=== PATIENT | female | born 1995 | race Caucasian/White ===

== ENCOUNTER 2017-02-23 17:44 | Outpatient (CLI) | payer BC | END 2017-02-23 19:35 | disposition home or self-care (01) | LOC: MW.OBCHECK 17:44 → MW.OB 17:48 → MW.OBCHECK 19:35 | PROVIDERS: ATTEND Obstetrics & Gynecology | DX: O47.03 False labor before 37 completed weeks of gestation, third trimester (principal); Z3A.37 37 weeks gestation of pregnancy | CPT/HCPCS: 59025; 80305; 81003; 87081 ==

== ENCOUNTER 2017-03-11 17:05 | Inpatient (IN) | payer SELFPAY ==
[2017-03-11] MEDS ORDERED: Lidocaine 1% 50 ML MDV INJECT PRN (17:36)
[2017-03-11] MEDS ORDERED: Sodium Chloride 0.9% 2.5 ML Syringe FLUSH PRN (17:36)
[2017-03-11] MEDS ORDERED: Carboprost Tromethamine 250 MCG/1 ML Amp IM PRN (17:36)
[2017-03-11] MEDS ORDERED: Methylergonovine 0.2 MG/1 ML Amp IM PRN (17:36)
[2017-03-11] MEDS ORDERED: Nalbuphine 10 MG/1 ML Vial IVPUSH PRN (17:36)
[2017-03-11] MEDS ORDERED: Sodium Chloride 0.9% 10 ML Syringe FLUSH PRN (17:36)
[2017-03-11] MEDS ORDERED: Misoprostol 200 MCG Tab PO PRN (17:36)
[2017-03-11] MEDS ORDERED: Water For Irrigation,Sterile 1,000 ML Container IRR PRN (17:36)
[2017-03-11] MEDS ORDERED: Oxytocin/Lactated Ringers 30 UNIT/500 ML BAG IV SCH (17:45)
--- NOTE | 2017-03-11 18:01 | PCM.LDHP ---
L&D History of Present Illness - General Date of Service: 03/11/17 Admit Problem/Dx: Patient Status Order with Admit Dx/Problem 03/11/17 17:36 Patient Status [ADT] Routine Admission Diagnosis/Problem Admission Diagnosis/Problem 03/11/17 17:56 21 yo EDC 03/18/2017 39 07 wks, Comes today due to SROM green tinged fluid. O+, RI, GBS neg. Pt transferred from [place] at 35 weeks and only had one visit in our clinic on 02/09/2017. Source of Information: Patient History Limitations: Reports: No limitations - History of Present Illness Improves with: Reports: None Worsens with: Reports: None Associated Symptoms: Reports: N - Related Data Allergies/Adverse Reactions: Allergies Allergy/AdvReac Type Severity Reaction Status Date / Time No Known Allergies Allergy Verified 02/23/17 18:14 H&P Review of Systems - Review of Systems: Review Of Systems: See Below General: Reports: no symptoms HEENT: Reports: no symptoms Pulmonary: Reports: No Symptoms Cardiovascular: Reports: no symptoms Gastrointestinal: Reports: No symptoms Genitourinary: Reports: no symptoms Musculoskeletal: Reports: no symptoms Skin: Reports: no symptoms Psychiatric: Reports: no symptoms Neurological: Reports: No Symptoms Hematologic/Lymphatic: Reports: no symptoms Immunologic: Reports: no symptoms L&D Exam - Exam Exam: See Below - Vital Signs Weight: 55.792 kg - Exam General: alert, oriented, cooperative HEENT: Hearing intact Lungs: Normal respiratory effort Abdomen: Soft (gravid) Rectal Exam: Deferred Genitourinary: Cervical fluid (SROM at 1545 today) Back Exam: full range of motion Extremities: normal inspection Skin: warm, dry, intact Neurological: cranial nerves intact Psychiatric: alert, normal affect, normal mood - Patient Data Lab Results last 24 hrs: Laboratory Results - last 24 hr 03/11/17 Range/Units 17:51 WBC 11.57 H (4.0-11.0) K/uL RBC 3.65 L (4.30-5.90) M/uL Hgb 11.0 L (12.0-16.0) g/dL Hct 33.4 L (36.0-46.0) % MCV 91.5 (80.0-98.0) fL MCH 30.1 (27.0-32.0) pg MCHC 32.9 (31.0-37.0) g/dL RDW Std Deviation 43.0 (28.0-62.0) fl RDW Coeff of Diandra 13 (11.0-15.0) % Plt Count 241 (150-400) K/uL MPV 11.30 (7.40-12.00) fL Nucleated RBC % 0.0 /100WBC Nucleated RBCs # 0 K/uL Result Diagrams: 03/11/17 17:51 - Problem List (1) Supervision of normal IUP (intrauterine ) in primigravida SNOMED Code(s): 39071870, 542232345, 891751930, 019208751 ICD Code: Z34.00 - ENCNTR FOR SUPRVSN OF NORMAL FIRST , UNSP TRIMESTER Status: Acute Current Visit: Yes Qualifiers: Trimester: third trimester Qualified Code(s): Z34.03 - Encounter for supervision of normal first , third trimester (2) SROM (spontaneous rupture of membranes) SNOMED Code(s): 146778819 ICD Code: RCD0996 - Status: Acute Priority: High Current Visit: Yes Problem List Initiated/Reviewed/Updated: Yes Orders Last 24hrs: Active Orders 24 hr Category Date Time Status Patient Status [ADT] Routine ADT 03/11/17 17:36 Active Heart Tones [RC] CONTINUOUS Care 03/11/17 17:36 Active Non Stress Test [RC] PER UNIT ROUTINE Care 03/11/17 17:36 Active May Shower [RC] ASDIRECTED Care 03/11/17 17:36 Active Notify Provider [RC] PRN Care 03/11/17 17:36 Active Up ad Rowena [RC] ASDIRECTED Care 03/11/17 17:36 Active Vaginal Exam [RC] PRN Care 03/11/17 17:36 Active Vital Signs [RC] PER UNIT ROUTINE Care 03/11/17 17:36 Active CBC W/O DIFF,HEMOGRAM [HEME] Routine Lab 03/11/17 17:51 Received TYPE AND SCREEN [BBK] Routine Lab 03/11/17 17:51 Received Butorphanol [Stadol] Med 03/11/17 17:36 Active 1 mg IVPUSH Q1H PRN Carboprost Tromethamine [Hemabate DS] Med 03/11/17 17:36 Active 250 mcg IM ASDIRECTED PRN Lactated Ringers [Ringers, Lactated] 1,000 ml Med 03/11/17 17:45 Active IV ASDIRECTED Lidocaine 1% [Xylocaine 1%] Med 03/11/17 17:36 Active 50 ml INJECT .ONCE PRN Methylergonovine [Methergine] Med 03/11/17 17:36 Active 0.2 mg IM ASDIRECTED PRN Misoprostol [Cytotec] Med 03/11/17 17:36 Active 200 mcg PO .ONCE PRN Nalbuphine [Nubain] Med 03/11/17 17:36 Active 10 mg IVPUSH Q1H PRN Oxytocin/Lactated Ringers [Pitocin in LR 30 Units/500 Med 03/11/17 17:45 Active ML] 30 unit in 500 ml IV TITRATE Sodium Chloride 0.9% [Saline Flush] Med 03/11/17 17:36 Active 10 ml FLUSH ASDIRECTED PRN Sodium Chloride 0.9% [Saline Flush] Med 03/11/17 17:36 Active 2.5 ml FLUSH ASDIRECTED PRN Water For Irrigation,Sterile [Sterile Water for Med 03/11/17 17:36 Active Irrigation] 1,000 ml IRR ASDIRECTED PRN Scalp Electrode [WOMSER] Per Unit Routine Oth 03/11/17 17:36 Ordered Peripheral IV Insertion Adult [OM.PC] Routine Oth 03/11/17 17:36 Ordered Resuscitation Status Routine Resus Stat 03/11/17 17:36 Ordered Medication Orders Butorphanol Tartrate (Stadol) 1 mg IVPUSH Q1H PRN PRN Reason: Pain Carboprost Tromethamine (Hemabate Ds) 250 mcg IM ASDIRECTED PRN PRN Reason: Post Hemorrhage Lactated Ringer's (Ringers, Lactated) 1,000 mls @ 150 mls/hr IV ASDIRECTED AKOSUA Oxytocin/Lactated Ringer's (Pitocin In Lr 30 Units/500 Ml) 30 unit in 500 mls @ 999 mls/hr IV TITRATE AKOSUA PRN Reason: 999 MUNITS/MIN Stop: 03/11/17 18:16 Lidocaine HCl (Xylocaine 1%) 50 ml INJECT .ONCE PRN PRN Reason: Laceration repair Methylergonovine Maleate (Methergine) 0.2 mg IM ASDIRECTED PRN PRN Reason: Post Hemorrhage Misoprostol (Cytotec) 200 mcg PO .ONCE PRN PRN Reason: Post Hemorrhage Nalbuphine HCl (Nubain) 10 mg IVPUSH Q1H PRN PRN Reason: Pain (severe 7-10) Stop: 03/11/17 19:37 Sodium Chloride (Saline Flush) 10 ml FLUSH ASDIRECTED PRN PRN Reason: Keep Vein Open Sodium Chloride (Saline Flush) 2.5 ml FLUSH ASDIRECTED PRN PRN Reason: Keep Vein Open Sterile Water (Sterile Water For Irrigation) 1,000 ml IRR ASDIRECTED PRN PRN Reason: delivery Assessment/Plan Comment:: Labor A: 21 yo EDC 03/18/2017 39 07 wks, Comes today due to SROM green tinged fluid. O+, RI, GBS neg. Pt transferred from [place] at 35 weeks and only had one visit in our clinic on 02/09/2017. P: Admit to L&D, epidural prn, anticipate .
[2017-03-11] MEDS: Butorphanol 1 MG/ML SDV IVPUSH PRN (22:01)
[2017-03-12] MEDS: Lactated Ringers 1,000 ML IV SCH ×2 (00:09→06:48)
[2017-03-12] MEDS: Butorphanol 1 MG/ML SDV IVPUSH PRN (00:09)
[2017-03-12] MEDS ORDERED: fentaNYL 100 MCG/2 ML SDV ONE (01:27)
[2017-03-12] MEDS ORDERED: Ropivacaine HCl/PF 100 ML ONE (01:27)
--- NOTE | 2017-03-12 02:04 | PCM.PREANE ---
Preanesthetic Assessment - Anesthesia/Transfusion/Family Hx Anesthesia History: Prior Anesthesia Without Reaction Transfusion History: No Prior Transfusion(s) - Review of Systems General: No Symptoms Pulmonary: No Symptoms Cardiovascular: No Symptoms Gastrointestinal: No symptoms Neurological: No Symptoms Other: Reports: None - Physical Assessment NPO Status Date: 03/12/17 NPO Status Time: 02:00 (sips/chips) Height: 5 ft 3 in Weight: 123 lb ASA Class: 2 Mental Status: Alert & Oriented x3 Airway Class: Mallampati = 2 Dentition: Reports: Normal Dentition Thyro-Mental Finger Breadths: 3 Mouth Opening Finger Breadths: 3 ROM/Head Extension: Full Lungs: Clear to auscultation, Normal respiratory effort Cardiovascular: Regular Rate, Regular Rhythm - Lab Values: Laboratory Last Values WBC 11.57 K/uL (4.0-11.0) H 03/11/17 17:51 RBC 3.65 M/uL (4.30-5.90) L 03/11/17 17:51 Hgb 11.0 g/dL (12.0-16.0) L 03/11/17 17:51 Hct 33.4 % (36.0-46.0) L 03/11/17 17:51 MCV 91.5 fL (80.0-98.0) 03/11/17 17:51 MCH 30.1 pg (27.0-32.0) 03/11/17 17:51 MCHC 32.9 g/dL (31.0-37.0) 03/11/17 17:51 RDW Std Deviation 43.0 fl (28.0-62.0) 03/11/17 17:51 RDW Coeff of Diandra 13 % (11.0-15.0) 03/11/17 17:51 Plt Count 241 K/uL (150-400) 03/11/17 17:51 MPV 11.30 fL (7.40-12.00) 03/11/17 17:51 Nucleated RBC % 0.0 /100WBC 03/11/17 17:51 Nucleated RBCs # 0 K/uL 03/11/17 17:51 Blood Type O POSITIVE 03/11/17 17:51 Antibody Screen NEGATIVE 03/11/17 17:51 - Allergies Allergies/Adverse Reactions: Allergies Allergy/AdvReac Type Severity Reaction Status Date / Time No Known Allergies Allergy Verified 04/24/17 18:14 - Blood Blood Available: No Product(s) Available: None - Anesthesia Plan Free Text/Narrative:: Labor Epidural - Acknowledgements Anesthesia Type Planned: Epidural Pt an Appropriate Candidate for the Planned Anesthesia: Yes Alternatives and Risks of Anesthesia Discussed w Pt/Guardian: Yes Pt/Guardian Understands and Agrees with Anesthesia Plan: Yes PreAnesthesia Questionnaire HEENT History: Reports: Impaired vision 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: , Spontaneous Musculoskeletal History: Reports: Other (see below) (Pt states she doesn't have any back problems that she knows of, but a "nerve problem" runs in the family - states members of her family have had surgery to fix it??) Psychiatric History: Reports: Depression - Past Surgical History HEENT Surgical History: Reports: Oral surgery - SUBSTANCE USE Smoking Status *Q: Never Smoker Second Hand Smoke Exposure: No Recreational Drug Use History: No - CURRENT (IN HOUSE) MEDS Current Meds: Current Medications Butorphanol Tartrate (Stadol) 1 mg IVPUSH Q1H PRN PRN Reason: Pain Last Admin: 03/12/17 00:09 Dose: 1 mg Carboprost Tromethamine (Hemabate Ds) 250 mcg IM ASDIRECTED PRN PRN Reason: Post Hemorrhage Lactated Ringer's (Ringers, Lactated) 1,000 mls @ 150 mls/hr IV ASDIRECTED AKOSUA Last Admin: 03/12/17 00:09 Dose: 150 mls/hr Lidocaine HCl (Xylocaine 1%) 50 ml INJECT .ONCE PRN PRN Reason: Laceration repair Methylergonovine Maleate (Methergine) 0.2 mg IM ASDIRECTED PRN PRN Reason: Post Hemorrhage Misoprostol (Cytotec) 200 mcg PO .ONCE PRN PRN Reason: Post Hemorrhage Sodium Chloride (Saline Flush) 10 ml FLUSH ASDIRECTED PRN PRN Reason: Keep Vein Open Sodium Chloride (Saline Flush) 2.5 ml FLUSH ASDIRECTED PRN PRN Reason: Keep Vein Open Sterile Water (Sterile Water For Irrigation) 1,000 ml IRR ASDIRECTED PRN PRN Reason: delivery Discontinued Medications Fentanyl (Sublimaze) Confirm Administered Dose 100 mcg .ROUTE .STK-MED ONE Stop: 03/12/17 01:28 Oxytocin/Lactated Ringer's (Pitocin In Lr 30 Units/500 Ml) 30 unit in 500 mls @ 999 mls/hr IV TITRATE AKOSUA PRN Reason: 999 MUNITS/MIN Stop: 03/11/17 18:16 Ropivacaine (Naropin 0.2%) Confirm Administered Dose 100 mls @ as directed .ROUTE .STK-MED ONE Stop: 03/12/17 01:28 Nalbuphine HCl (Nubain) 10 mg IVPUSH Q1H PRN PRN Reason: Pain (severe 7-10) Stop: 03/11/17 19:37
[2017-03-12] MEDS ORDERED: Oxytocin/Lactated Ringers 30 UNIT/500 ML BAG ONE (07:37)
[2017-03-12] MEDS ORDERED: Acetaminophen 500 MG Tab PO ONE (07:56)
[2017-03-12] MEDS ORDERED: Lanolin 100% Cream 7 GM Tube TOP PRN (08:55)
[2017-03-12] MEDS ORDERED: Bisacodyl 10 MG Supp RECTAL PRN (08:55)
[2017-03-12] MEDS ORDERED: Acetaminophen 500 MG Tab PO PRN ×2 (08:55)
[2017-03-12] MEDS ORDERED: Benzocaine/Menthol 20%-0.5% Spray 78 GM Cannister TOP PRN (08:55)
[2017-03-12] MEDS ORDERED: oxyCODONE 5 MG Tab PO PRN (08:55)
[2017-03-12] MEDS ORDERED: Ibuprofen 400 MG Tab PO PRN (08:55)
[2017-03-12] MEDS ORDERED: Witch Hazel Medicated Pads 40/Jar TOP PRN (08:55)
--- NOTE | 2017-03-12 10:23 | PCM.DEL ---
L & D Note - General Info Date of Service: 03/12/17 Mother's Due Date: 03/18/17 - Delivery Note Labor: spontaneous Delivery Outcome: Livebirth Infant Delivery Method: Spontaneous Vaginal Delivery Infant Delivery Mode: Spontaneous Presentation: Vertex Nuchal cord: none Anesthesia Type: Epidural Anesthetic: lidocaine (xylocaine) 1% plain Local anesthetic volume: 2cc Amniotic Fluid Description: Meconium stained Episiotomy Type: None Laceration: 2nd degree, periurethral Suture type: vicryl Suture size: 3-0 (3-0x1 and 4-0x1) Placenta: intact, spontaneous Cord: 3 vessels Estimated blood loss: 100 Resuscitation needed: No Score 1 min: 8 Score 5 min: 9 Second Stage Interventions: Reports: Pushing Effectively Delivery Comments (Free Text/Narrative):: Dr Colbert. Resident did the delivery. I was the attending. of viable female over intact perineum. Head delivered with good pushing. Shoulders and body followed easily. to mothers abdomen with RN at for evalu. Delayed cord clamping, Pitocin to IVF, Cord clamped x2 and cut. Cord blood collected. Placenta delivered grossly intact. Inspection noted 2nd degree ML laceration and labial laceration, both were repaired in the usual manor with 3- 0 melody for ML and 4-0 for labial. Lidocaine was used on both for pain. EBL 100cc , APGARS 8/9, Wt 7bl 4oz. Mother and left in stable condition for recovery. FOB was not see during labor or delivery. Pt states he has to work. - General Info Date of Service: 03/12/17 Admission Dx/Problem (Free Text): Patient Status Order with Admit Dx/Problem 03/11/17 17:36 Patient Status [ADT] Routine Admission Diagnosis/Problem Admission Diagnosis/Problem 03/11/17 17:56 21 yo EDC 03/18/2017 39 07 wks, Comes today due to SROM green tinged fluid. O+, RI, GBS neg. Pt transferred from [place] at 35 weeks and only had one visit in our clinic on 02/09/2017. Functional Status: Reports: pain controlled - Review of Systems General: Reports: No Symptoms HEENT: Reports: no symptoms Pulmonary: Reports: no symptoms Cardiovascular: Reports: No Symptoms Gastrointestinal: Reports: No symptoms Genitourinary: Reports: no symptoms Musculoskeletal: Reports: no symptoms Skin: Reports: no symptoms Neurological: Reports: No Symptoms Psychiatric: Reports: no symptoms - Patient Data Vitals - most recent: Last Vital Signs Temp 37.9 C 03/12/17 07:59 Pulse Resp BP Pulse Ox Weight - most recent: 55.792 kg Lab Results last 24 hrs: Laboratory Results - last 24 hr 03/11/17 03/11/17 Range/Units 17:51 17:51 WBC 11.57 H (4.0-11.0) K/uL RBC 3.65 L (4.30-5.90) M/uL Hgb 11.0 L (12.0-16.0) g/dL Hct 33.4 L (36.0-46.0) % MCV 91.5 (80.0-98.0) fL MCH 30.1 (27.0-32.0) pg MCHC 32.9 (31.0-37.0) g/dL RDW Std Deviation 43.0 (28.0-62.0) fl RDW Coeff of Diandra 13 (11.0-15.0) % Plt Count 241 (150-400) K/uL MPV 11.30 (7.40-12.00) fL Nucleated RBC % 0.0 /100WBC Nucleated RBCs # 0 K/uL Blood Type O POSITIVE Antibody Screen NEGATIVE Med Orders - Current: Current Medications Acetaminophen (Tylenol Extra Strength) 500 mg PO Q4H PRN PRN Reason: Pain Acetaminophen (Tylenol Extra Strength) 1,000 mg PO Q4H PRN PRN Reason: Pain Benzocaine/Menthol (Dermoplast Pain Relief 20%-0.5% Maybeury) 78 gm TOP ASDIRECTED PRN PRN Reason: Perineal Comfort Measure Bisacodyl (Dulcolax) 10 mg RECTAL .ONCE PRN PRN Reason: Constipation Docusate Sodium (Colace) 100 mg PO BID PRN PRN Reason: Constipation Emollient Ointment (Lansinoh Hpa) 0 gm TOP ASDIRECTED PRN PRN Reason: Sore Nipples Ibuprofen (Motrin) 400 mg PO Q4H PRN PRN Reason: Pain Ibuprofen (Motrin) 800 mg PO Q6H PRN PRN Reason: Pain Oxycodone HCl (Oxycodone) 5 mg PO Q2H PRN PRN Reason: Pain Witch Niki (Tucks) 1 pad TOP ASDIRECTED PRN PRN Reason: comfort care Discontinued Medications Acetaminophen (Tylenol Extra Strength) 1,000 mg PO ONETIME ONE Stop: 03/12/17 07:57 Last Admin: 03/12/17 07:59 Dose: 1,000 mg Butorphanol Tartrate (Stadol) 1 mg IVPUSH Q1H PRN PRN Reason: Pain Last Admin: 03/12/17 00:09 Dose: 1 mg Carboprost Tromethamine (Hemabate Ds) 250 mcg IM ASDIRECTED PRN PRN Reason: Post Hemorrhage Fentanyl (Sublimaze) Confirm Administered Dose 100 mcg .ROUTE .Practice Management e-Tools-MED ONE Stop: 03/12/17 01:28 Last Admin: 03/12/17 06:47 Dose: Not Given Lactated Ringer's (Ringers, Lactated) 1,000 mls @ 150 mls/hr IV ASDIRECTED [facility] Last Admin: 03/12/17 06:48 Dose: 150 mls/hr Oxytocin/Lactated Ringer's (Pitocin In Lr 30 Units/500 Ml) 30 unit in 500 mls @ 999 mls/hr IV TITRATE AKOSUA PRN Reason: 999 MUNITS/MIN Stop: 03/11/17 18:16 Last Admin: 03/12/17 08:24 Dose: 999 munits/min, 999 mls/hr Ropivacaine (Naropin 0.2%) Confirm Administered Dose 100 mls @ as directed .ROUTE .STPovio-MED ONE Stop: 03/12/17 01:28 Last Admin: 03/12/17 06:47 Dose: Not Given Oxytocin/Lactated Ringer's (Pitocin In Lr 30 Units/500 Ml) Confirm Administered Dose 30 unit in 500 mls @ as directed .ROUTE .STK-MED ONE Stop: 03/12/17 07:38 Lidocaine HCl (Xylocaine 1%) 50 ml INJECT .ONCE PRN PRN Reason: Laceration repair Last Admin: 03/12/17 08:30 Dose: 50 ml Methylergonovine Maleate (Methergine) 0.2 mg IM ASDIRECTED PRN PRN Reason: Post Hemorrhage Misoprostol (Cytotec) 200 mcg PO .ONCE PRN PRN Reason: Post Hemorrhage Nalbuphine HCl (Nubain) 10 mg IVPUSH Q1H PRN PRN Reason: Pain (severe 7-10) Stop: 03/11/17 19:37 Sodium Chloride (Saline Flush) 10 ml FLUSH ASDIRECTED PRN PRN Reason: Keep Vein Open Sodium Chloride (Saline Flush) 2.5 ml FLUSH ASDIRECTED PRN PRN Reason: Keep Vein Open Sterile Water (Sterile Water For Irrigation) 1,000 ml IRR ASDIRECTED PRN PRN Reason: delivery - Exam General: alert, cooperative, no acute distress Lungs: Normal respiratory effort Abdomen: soft, no tenderness, no distension (Female) Exam: Normal external exam, Normal bimanual exam, Vaginal bleeding, Vaginal tears Back Exam: full range of motion Extremities: no edema Skin: warm, dry, intact Wound/Incisions: healing well Neurological: no new focal deficit Psy/Mental Status: alert, normal affect, normal mood - Problem List & Annotations (1) Supervision of normal IUP (intrauterine ) in primigravida SNOMED Code(s): 99440017, 270755086, 723181512, 293570080 Code(s): Z34.00 - ENCNTR FOR SUPRVSN OF NORMAL FIRST , UNSP TRIMESTER Status: Acute Current Visit: Yes Qualifiers: Trimester: third trimester Qualified Code(s): Z34.03 - Encounter for supervision of normal first , third trimester (2) SROM (spontaneous rupture of membranes) SNOMED Code(s): 602366996 Code(s): ZQZ4447 - Status: Acute Priority: High Current Visit: Yes (3) (normal spontaneous vaginal delivery) SNOMED Code(s): 64974645 Code(s): O80 - ENCOUNTER FOR FULL-TERM UNCOMPLICATED DELIVERY Status: Acute Priority: Medium Current Visit: Yes - Problem List Review Problem List Initiated/Reviewed/Updated: Yes - My Orders Last 24 Hours: My Active Orders 03/11/17 17:36 Heart Tones [RC] CONTINUOUS Non Stress Test [RC] PER UNIT ROUTINE Vaginal Exam [RC] PRN Vital Signs [RC] PER UNIT ROUTINE 03/12/17 08:55 May Shower [RC] ASDIRECTED Up ad Rowena [RC] ASDIRECTED Vital Signs [RC] PER UNIT ROUTINE Acetaminophen [Tylenol Extra Strength] 1,000 mg PO Q4H PRN Acetaminophen [Tylenol Extra Strength] 500 mg PO Q4H PRN Benzocaine/Menthol [Dermoplast Pain Relief 20%-0.5% Maybeury] 78 gm TOP ASDIRECTED PRN Bisacodyl [Dulcolax] 10 mg RECTAL .ONCE PRN Docusate Sodium [Colace] 100 mg PO BID PRN Ibuprofen [Motrin] 400 mg PO Q4H PRN Ibuprofen [Motrin] 800 mg PO Q6H PRN Lanolin [Lansinoh HPA] See Dose Instructions TOP ASDIRECTED PRN Witch Niki [Tucks] 1 pad TOP ASDIRECTED PRN oxyCODONE 5 mg PO Q2H PRN Assess Lochia [WOMSER] Per Unit Routine Assess Uterine Involution [WOMSER] Per Unit Routine Peripheral IV Discontinue [OM.PC] Routine Resuscitation Status Routine 03/12/17 08:56 Patient Status [ADT] Routine 03/12/17 Breakfast Regular Diet [DIET] - Assessment Assessment:: of viable female. 2nd degree lac and labial laceration both repaired. EBL 100cc, APGARS 8/9, Wt: 7lb 4oz, Stable - Plan Plan:: Labor A: 21 yo EDC 03/18/2017 39 07 wks, Comes today due to SROM green tinged fluid. O+, RI, GBS neg. Pt transferred from [place] at 35 weeks and only had one visit in our clinic on 02/09/2017. P: Admit to L&D, epidural prn, anticipate . Delivery P: Routine pp plan of care
[2017-03-12] MEDS: Ibuprofen 800 MG Tab PO PRN ×2 (10:34→16:48)
[2017-03-12] MEDS: Docusate Sodium 100 MG Cap PO PRN (10:35)
--- NOTE | 2017-03-12 21:20 | PCM48HPAN ---
Post Anesthesia Note - EVALUATION WITHIN 48HRS OF ANESTHETIC Vital Signs in Normal Range: Yes Patient Participated in Evaluation: Yes Respiratory Function Stable: Yes Airway Patent: Yes Cardiovascular Function Stable: Yes Hydration Status Stable: Yes Pain Control Satisfactory: Yes Nausea and Vomiting Control Satisfactory: Yes Mental Status Recovered: Yes - COMMENTS/OBSERVATIONS Free Text/Narrative:: Full return of sensation and motor movement to lower extremities. No complaints of problems from epidural.
--- NOTE | 2017-03-13 09:45 | PCM.DCSUM1 ---
Discharge Summary - Hospital Course Free Text/Narrative:: Discharge home with infant, follow up 6 weeks or sooner if needed. - Discharge Data Discharge Date: 03/13/17 Discharge Disposition: Home, Self-Care 01 Condition: Good - Discharge Diagnosis/Problem(s) (1) Supervision of normal IUP (intrauterine ) in primigravida SNOMED Code(s): 26897450, 479595151, 121331360, 544115720 ICD Code: Z34.00 - ENCNTR FOR SUPRVSN OF NORMAL FIRST , UNSP TRIMESTER Status: Acute Current Visit: Yes Qualifiers: Trimester: third trimester Qualified Code(s): Z34.03 - Encounter for supervision of normal first , third trimester (2) SROM (spontaneous rupture of membranes) SNOMED Code(s): 767033228 ICD Code: [id number] - Status: Acute Priority: High Current Visit: Yes (3) (normal spontaneous vaginal delivery) SNOMED Code(s): 41087004 ICD Code: O80 - ENCOUNTER FOR FULL-TERM UNCOMPLICATED DELIVERY Status: Acute Priority: Medium Current Visit: Yes - Patient Instructions Diet: Usual Diet as Tolerated Activity: As Tolerated, Rest and Relax Today Driving: Do Not Drive Showering/Bathing: May Shower Notify Provider of: Fever, Increased Pain, Swelling and Redness, Nausea and/or Vomiting Other/Special Instructions: Discharge home with infant, follow up 6 weeks or sooner if needed. - Discharge Plan Referrals: [facility] [Outside] Delfina Klein CNM [Mid-] - 03/16/17 3:00 pm (6wk Check) - General Info Date of Service: 03/13/17 Admission Dx/Problem (Free Text: Patient Status Order with Admit Dx/Problem 03/11/17 17:36 Patient Status [ADT] Routine Admission Diagnosis/Problem Admission Diagnosis/Problem 03/11/17 17:56 21 yo EDC 03/18/2017 39 07 wks, Comes today due to SROM green tinged fluid. O+, RI, GBS neg. Pt transferred from [place] at 35 weeks and only had one visit in our clinic on 02/09/2017. Functional Status: Reports: pain controlled, tolerating diet, ambulating, urinating - Review of Systems General: Reports: No Symptoms HEENT: Reports: no symptoms Pulmonary: Reports: no symptoms Cardiovascular: Reports: No Symptoms Gastrointestinal: Reports: No symptoms Genitourinary: Reports: no symptoms Musculoskeletal: Reports: no symptoms Skin: Reports: no symptoms Neurological: Reports: No Symptoms Psychiatric: Reports: no symptoms - Patient Data Vitals - Most Recent: Last Vital Signs Temp 37.1 C 03/13/17 08:00 Pulse 63 03/13/17 08:00 Resp 20 03/13/17 08:00 BP 90/55 L 03/13/17 08:00 Pulse Ox 96 03/13/17 08:00 Weight - Most Recent: 55.792 kg I&O - Last 24 hours: Intake & Output 03/12/17 03/13/17 03/13/17 22:59 06:59 14:59 Intake Total 1500 Output Total 950 Balance 550 Med Orders - Current: Current Medications Acetaminophen (Tylenol Extra Strength) 500 mg PO Q4H PRN PRN Reason: Pain Last Admin: 03/12/17 21:55 Dose: 500 mg Acetaminophen (Tylenol Extra Strength) 1,000 mg PO Q4H PRN PRN Reason: Pain Benzocaine/Menthol (Dermoplast Pain Relief 20%-0.5% [place]) 78 gm TOP ASDIRECTED PRN PRN Reason: Perineal Comfort Measure Last Admin: 03/12/17 10:35 Dose: 1 can Bisacodyl (Dulcolax) 10 mg RECTAL .ONCE PRN PRN Reason: Constipation Docusate Sodium (Colace) 100 mg PO BID PRN PRN Reason: Constipation Last Admin: 03/12/17 10:35 Dose: 100 mg Emollient Ointment (Lansinoh Hpa) 0 gm TOP ASDIRECTED PRN PRN Reason: Sore Nipples Ibuprofen (Motrin) 400 mg PO Q4H PRN PRN Reason: Pain Ibuprofen (Motrin) 800 mg PO Q6H PRN PRN Reason: Pain Last Admin: 03/12/17 16:48 Dose: 800 mg Oxycodone HCl (Oxycodone) 5 mg PO Q2H PRN PRN Reason: Pain Witch Niki (Tucks) 1 pad TOP ASDIRECTED PRN PRN Reason: comfort care Discontinued Medications Acetaminophen (Tylenol Extra Strength) 1,000 mg PO ONETIME ONE Stop: 03/12/17 07:57 Last Admin: 03/12/17 07:59 Dose: 1,000 mg Butorphanol Tartrate (Stadol) 1 mg IVPUSH Q1H PRN PRN Reason: Pain Last Admin: 03/12/17 00:09 Dose: 1 mg Carboprost Tromethamine (Hemabate Ds) 250 mcg IM ASDIRECTED PRN PRN Reason: Post Hemorrhage Fentanyl (Sublimaze) Confirm Administered Dose 100 mcg .ROUTE .[employer] ONE Stop: 03/12/17 01:28 Last Admin: 03/12/17 06:47 Dose: Not Given Lactated Ringer's (Ringers, Lactated) 1,000 mls @ 150 mls/hr IV ASDIRECTED AKOSUA Last Admin: 03/12/17 06:48 Dose: 150 mls/hr Oxytocin/Lactated Ringer's (Pitocin In Lr 30 Units/500 Ml) 30 unit in 500 mls @ 999 mls/hr IV TITRATE AKOSUA PRN Reason: 999 MUNITS/MIN Stop: 03/11/17 18:16 Last Admin: 03/12/17 08:24 Dose: 999 munits/min, 999 mls/hr Ropivacaine (Naropin 0.2%) Confirm Administered Dose 100 mls @ as directed .ROUTE .[employer] ONE Stop: 03/12/17 01:28 Last Admin: 03/12/17 06:47 Dose: Not Given Oxytocin/Lactated Ringer's (Pitocin In Lr 30 Units/500 Ml) Confirm Administered Dose 30 unit in 500 mls @ as directed .ROUTE .[employer] ONE Stop: 03/12/17 07:38 Last Admin: 03/12/17 10:38 Dose: Not Given Lidocaine HCl (Xylocaine 1%) 50 ml INJECT .ONCE PRN PRN Reason: Laceration repair Last Admin: 03/12/17 08:30 Dose: 50 ml Methylergonovine Maleate (Methergine) 0.2 mg IM ASDIRECTED PRN PRN Reason: Post Hemorrhage Misoprostol (Cytotec) 200 mcg PO .ONCE PRN PRN Reason: Post Hemorrhage Nalbuphine HCl (Nubain) 10 mg IVPUSH Q1H PRN PRN Reason: Pain (severe 7-10) Stop: 03/11/17 19:37 Sodium Chloride (Saline Flush) 10 ml FLUSH ASDIRECTED PRN PRN Reason: Keep Vein Open Sodium Chloride (Saline Flush) 2.5 ml FLUSH ASDIRECTED PRN PRN Reason: Keep Vein Open Sterile Water (Sterile Water For Irrigation) 1,000 ml IRR ASDIRECTED PRN PRN Reason: delivery - Exam General: Reports: alert, oriented, cooperative, no acute distress Lungs: Reports: Normal respiratory effort Abdomen: Reports: soft, no tenderness, no distension (Female) Exam: Vaginal Bleeding Rectal (Female) Exam: Deferred Back Exam: Reports: Full Range of Motion Extremities: Reports: no edema, normal pulses Skin: Reports: warm, dry, intact Wound/Incisions: Reports: healing well Neurological: Reports: no new focal deficit Psy/Mental Status: Reports: alert, normal affect, normal mood *Q Meaningful Use (DIS) - VTE *Q VTE Criteria *Q: - Stroke *Q Stroke Criteria *Q: - AMI *Q AMI Criteria *Q:
[2017-03-13] MEDS: Docusate Sodium 100 MG Cap PO PRN (10:42)
[2017-03-13 12:11] VITALS: BP 113/76
== END 2017-03-13 14:40 | disposition home or self-care (01) | DRG 775 ==
LOC: MW.OBCHECK 17:05 → MW.OB 17:06 → MW.OBCHECK 17:36 → OBSVTOIN 03-12 08:56 → MW.ICU 03-12 20:44
PROVIDERS: ADMIT Obstetrics & Gynecology; ATTEND Obstetrics & Gynecology
PROC: 10E0XZZ Delivery of Products of Conception, External Approach (ICD-10-PCS; principal; 2017-03-12)
PROC: 0KQM0ZZ Repair Perineum Muscle, Open Approach (ICD-10-PCS; 2017-03-12)
DX: O42.02 Full-term premature rupture of membranes, onset of labor within 24 hours of rupture (principal); O70.1 Second degree perineal laceration during delivery; O77.0 Labor and delivery complicated by meconium in amniotic fluid; Z3A.39 39 weeks gestation of pregnancy; Z37.0 Single live birth
CPT/HCPCS: 01967; 36415; 59025; 85027; 86850; 86900; 86901; A9270-GY; J0595; J2795; J3010; J7120

== ENCOUNTER 2019-03-29 05:36 | Inpatient (IN) | payer BC ==
--- NOTE | 2019-03-29 19:17 | PCM.LDHP ---
L&D History of Present Illness - General Date of Service: 03/29/19 Admit Problem/Dx: Patient Status Order with Admit Dx/Problem 03/29/19 18:11 Patient Status [ADT] Routine Admission Diagnosis/Problem Admission Diagnosis/Problem -related examination Source of Information: Patient History Limitations: Reports: No Limitations - History of Present Illness Improves with: Reports: None Worsens with: Reports: None Associated Symptoms: Reports: N - Related Data Allergies/Adverse Reactions: Allergies Allergy/AdvReac Type Severity Reaction Status Date / Time No Known Allergies Allergy Verified 02/12/19 12:51 Past Medical History 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: , 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 Musculoskeletal History: Reports: Other (See Below) Psychiatric History: Reports: Depression - Past Surgical History HEENT Surgical History: Reports: Oral Surgery Social & Family History - Caffeine Use Caffeine Use: Reports: None H&P Review of Systems - Review of Systems: Review Of Systems: See Below General: Reports: No Symptoms HEENT: Reports: No Symptoms Pulmonary: Reports: No Symptoms Cardiovascular: Reports: No Symptoms Gastrointestinal: Reports: No Symptoms Genitourinary: Reports: No Symptoms Musculoskeletal: Reports: No Symptoms Skin: Reports: No Symptoms Psychiatric: Reports: No Symptoms Neurological: Reports: No Symptoms Hematologic/Lymphatic: Reports: No Symptoms Immunologic: Reports: No Symptoms L&D Exam - Exam Exam: See Below - Vital Signs Weight: 55.338 kg - OB Specific Fundal Height In cm: 37 Contraction Intensity: Mild Movement: Active Heart Tones: Present Presentation: Vertex - Nichols Score Nichols Score Cervix Position: Midposition Nichols Score Consistency: Medium Nichols Score Effacement: 51-70% Nichols Score Dilation: 1-2 cm Nichols Score 's Station: -3 Nichols Score Total: 5 - Exam General: Alert, Oriented HEENT: PERRLA, Conjunctiva Clear, EACs Clear, EOMI, Hearing Intact, Mucosa Moist & [place], Nares Patent, Normal Nasal Septum, Posterior Pharynx Clear, TMs Clear Neck: Supple, Trachea Midline Lungs: Clear to Auscultation, Normal Respiratory Effort Cardiovascular: Regular Rate, Regular Rhythm GI/Abdominal Exam: Normal Bowel Sounds, Soft, Non-Tender, No Organomegaly, No Distention, No Abnormal Bruit, No Mass, Pelvis Stable Rectal Exam: Normal Exam, Normal Rectal Tone Genitourinary: Normal external exam, Normal bimanual exam, Normal speculum exam Back Exam: Normal Inspection, Full Range of Motion Extremities: Normal Inspection, Normal Range of Motion, Non-Tender, No Pedal Edema, Normal Capillary Refill Skin: Warm, Dry, Intact Neurological: Cranial Nerves Intact, Reflexes Equal Bilateral Psychiatric: Alert, Normal Affect, Normal Mood - Patient Data Lab Results Last 24 hrs: Laboratory Results - last 24 hr 03/29/19 Range/Units 17:30 Membrane Rupture POSITIVE Problem List Initiated/Reviewed/Updated: Yes Orders Last 24hrs: Active Orders 24 hr Category Date Time Status Patient Status [ADT] Routine ADT 03/29/19 18:11 Active Non Stress Test [RC] PER UNIT ROUTINE Care 03/29/19 18:11 Active Up ad [place] [RC] ASDIRECTED Care 03/29/19 18:11 Active Vaginal Exam [RC] Click to Edit Care 03/29/19 18:11 Active Vital Signs [RC] PER UNIT ROUTINE Care 03/29/19 18:11 Active Resuscitation Status Routine Resus Stat 03/29/19 18:11 Ordered Assessment/Plan Comment:: IUP 38wks+3 with SROM confirmed. GBS status is unknown. Plan to start antbiotic as per protocol and pitocin stimulation ad needed.
[2019-03-29] MEDS ORDERED: Ondansetron 4 MG/2 ML SDV IV PRN (19:37)
[2019-03-29] MEDS ORDERED: Methylergonovine 0.2 MG/1 ML Amp IM PRN (19:37)
[2019-03-29] MEDS ORDERED: Water For Irrigation,Sterile 1,000 ML Container IRR PRN (19:37)
[2019-03-29] MEDS ORDERED: Tranexamic Acid 1,000 MG in Sodium Chloride 0.9% 100 ML IV PRN (19:37)
[2019-03-29] MEDS ORDERED: Ampicillin 2 GM in Sodium Chloride 0.9% 100 ML IV ONE (19:37)
[2019-03-29] MEDS ORDERED: Carboprost Tromethamine 250 MCG/1 ML Amp IM PRN (19:37)
[2019-03-29] MEDS ORDERED: Sodium Chloride 0.9% 10 ML SDV IV PRN (19:37)
[2019-03-29] MEDS ORDERED: Lidocaine 1% 50 ML MDV INJECT PRN (19:37)
[2019-03-29] MEDS ORDERED: Nalbuphine 10 MG/1 ML Vial IVPUSH PRN (19:37)
[2019-03-29] MEDS ORDERED: Sodium Chloride 0.9% 2.5 ML Syringe FLUSH PRN (19:37)
[2019-03-29] MEDS ORDERED: Sodium Chloride 0.9% 10 ML Syringe FLUSH PRN (19:37)
[2019-03-29] MEDS ORDERED: Misoprostol 200 MCG Tab PO PRN (19:37)
[2019-03-29] MEDS ORDERED: Oxytocin/0.9 % Sodium Chloride 30 UNIT/500 ML BAG IV SCH (19:45)
[2019-03-29] MEDS: Lactated Ringers 1,000 ML IV SCH (20:06)
[2019-03-29] MEDS: Butorphanol 1 MG/ML SDV IVPUSH PRN (21:43)
[2019-03-30] MEDS: Ampicillin 1 GM in Sodium Chloride 0.9% 50 ML IV SCH ×6 (00:09→20:27)
[2019-03-30] MEDS ORDERED: Oxytocin/0.9 % Sodium Chloride 30 UNIT/500 ML BAG IV SCH (01:00)
[2019-03-30] MEDS: Misoprostol 25 MCG (1/4 of 100 MCG) Tab PO SCH ×3 (11:33→19:57)
[2019-03-30] MEDS ORDERED: Misoprostol 50 MCG (1/2 of 100 MCG) Tab PO ONE (19:56)
[2019-03-30] MEDS: Butorphanol 1 MG/ML SDV IVPUSH PRN (20:27)
[2019-03-31] MEDS: Lactated Ringers 1,000 ML IV SCH ×2 (00:04→02:22)
[2019-03-31] MEDS: Ampicillin 1 GM in Sodium Chloride 0.9% 50 ML IV SCH ×2 (00:05→04:05)
[2019-03-31] MEDS ORDERED: ePHEDrine 50 MG/ML SDV ONE (01:41)
[2019-03-31] MEDS ORDERED: Lidocaine HCl/EPINEPHrine 5 ML IJ ONE (01:41)
[2019-03-31] MEDS ORDERED: Bupivacaine 0.25% 10 ML SDV ONE (01:42)
--- NOTE | 2019-03-31 02:13 | PCM.PREANE ---
Preanesthetic Assessment - Procedure Proposed Procedure: labor epidural - Anesthesia/Transfusion/Family Hx Anesthesia History: Prior Anesthesia Without Reaction Family History of Anesthesia Reaction: No Transfusion History: No Prior Transfusion(s) - Review of Systems General: No Symptoms Pulmonary: No Symptoms Cardiovascular: No Symptoms Gastrointestinal: No Symptoms Neurological: No Symptoms Other: Reports: None - Physical Assessment NPO Status Date: 03/30/19 Height: 1.63 m Weight: 55.338 kg ASA Class: 2 Thyro-Mental Finger Breadths: 3 ROM/Head Extension: Full Cardiovascular: Regular Rate - Lab Values: Laboratory Last Values WBC 10.26 K/uL (4.0-11.0) 03/29/19 20:45 RBC 3.51 M/uL (4.30-5.90) L 03/29/19 20:45 Hgb 9.7 g/dL (12.0-16.0) L 03/29/19 20:45 Hct 30.8 % (36.0-46.0) L 03/29/19 20:45 MCV 87.7 fL (80.0-98.0) 03/29/19 20:45 MCH 27.6 pg (27.0-32.0) 03/29/19 20:45 MCHC 31.5 g/dL (31.0-37.0) 03/29/19 20:45 RDW Std Deviation 44.7 fl (28.0-62.0) 03/29/19 20:45 RDW Coeff of Diandra 14 % (11.0-15.0) 03/29/19 20:45 Plt Count 314 K/uL (150-400) 03/29/19 20:45 MPV 10.50 fL (7.40-12.00) 03/29/19 20:45 Nucleated RBC % 0.0 /100WBC 03/29/19 20:45 Nucleated RBCs # 0 K/uL 03/29/19 20:45 Membrane Rupture POSITIVE 03/29/19 17:30 Blood Type O POSITIVE 03/29/19 20:45 Antibody Screen NEGATIVE 03/29/19 20:45 - Allergies Allergies/Adverse Reactions: Allergies Allergy/AdvReac Type Severity Reaction Status Date / Time No Known Allergies Allergy Verified 02/12/19 12:51 - Blood Blood Available: No Product(s) Available: None - Anesthesia Plan Pre-Op Medication Ordered: None - Acknowledgements Anesthesia Type Planned: Epidural Pt an Appropriate Candidate for the Planned Anesthesia: Yes Alternatives and Risks of Anesthesia Discussed w Pt/Guardian: Yes Pt/Guardian Understands and Agrees with Anesthesia Plan: Yes PreAnesthesia Questionnaire HEENT History: Reports: None, Impaired Vision Cardiovascular History: Reports: None Respiratory History: Reports: None Gastrointestinal History: Reports: None, Irritable Bowel Syndrome Genitourinary History: Reports: None 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 Musculoskeletal History: Reports: Other (See Below) Neurological History: Reports: None, Headaches, Chronic Psychiatric History: Reports: None, Depression Endocrine/Metabolic History: Reports: None Hematologic History: Reports: None Immunologic History: Reports: None Oncologic (Cancer) History: Reports: None Dermatologic History: Reports: None - Infectious Disease History Infectious Disease History: Reports: None - Past Surgical History Head Surgeries/Procedures: Reports: None HEENT Surgical History: Reports: None, Oral Surgery Cardiovascular Surgical History: Reports: None Respiratory Surgical History: Reports: None GI Surgical History: Reports: None Female Surgical History: Reports: None Male Surgical History: Reports: None Endocrine Surgical History: Reports: None Neurological Surgical History: Reports: None Musculoskeletal Surgical History: Reports: None Oncologic Surgical History: Reports: None Dermatological Surgical History: Reports: None - Past Imaging History Past Imaging History: Reports: None - SUBSTANCE USE Smoking Status *Q: Never Smoker Tobacco Use Within Last Twelve Months: No Recreational Drug Use History: No - CURRENT (IN HOUSE) MEDS Current Meds: Current Medications Butorphanol Tartrate (Stadol) 1 mg IVPUSH Q1H PRN PRN Reason: Pain Last Admin: 03/30/19 20:27 Dose: 1 mg Carboprost Tromethamine (Hemabate Ds) 250 mcg IM ASDIRECTED PRN PRN Reason: Post Hemorrhage Tranexamic Acid 1,000 mg/ (Sodium Chloride) 110 mls @ 660 mls/hr IV ONETIME PRN PRN Reason: Bleeding Lactated Ringer's (Ringers, Lactated) 1,000 mls @ 150 mls/hr IV ASDIRECTED AKOSUA Last Infusion: 03/31/19 01:03 Dose: 999 mls/hr Oxytocin/Sodium Chloride (Oxytocin 30 Unit/500 Ml-Ns) 30 unit in 500 mls @ 999 mls/hr IV TITRATE AKOSUA Ampicillin Sodium 1 gm/ Sodium (Chloride) 50 mls @ 100 mls/hr IV Q4H [facility] Last Admin: 03/31/19 00:05 Dose: 100 mls/hr Oxytocin/Sodium Chloride (Oxytocin 30 Unit/500 Ml-Ns) 30 unit in 500 mls @ 2 mls/hr IV TITRATE [facility]; Protocol Last Infusion: 03/30/19 06:28 Dose: 20 munits/min, 20 mls/hr Lidocaine HCl (Xylocaine 1%) 50 ml INJECT ONETIME PRN PRN Reason: Laceration repair Methylergonovine Maleate (Methergine) 0.2 mg IM ASDIRECTED PRN PRN Reason: Post Hemorrhage Misoprostol (Cytotec) 200 mcg PO ONETIME PRN PRN Reason: Post Hemorrhage Misoprostol (Cytotec) 25 mcg PO Q4H [facility] Last Admin: 03/30/19 19:57 Dose: Not Given Nalbuphine HCl (Nubain) 10 mg IVPUSH Q1H PRN PRN Reason: Pain (severe 7-10) Ondansetron HCl (Zofran) 4 mg IV Q6H PRN PRN Reason: Nausea/Vomiting Sodium Chloride (Saline Flush) 10 ml FLUSH ASDIRECTED PRN PRN Reason: Keep Vein Open Sodium Chloride (Saline Flush) 2.5 ml FLUSH ASDIRECTED PRN PRN Reason: Keep Vein Open Sodium Chloride (Normal Saline) 10 ml IV ASDIRECTED PRN PRN Reason: IV Use Sterile Water (Sterile Water For Irrigation) 1,000 ml IRR ASDIRECTED PRN PRN Reason: delivery Discontinued Medications Bupivacaine HCl (Sensorcaine-Mpf 0.25%) Confirm Administered Dose 10 ml .ROUTE .STK-MED ONE Stop: 03/31/19 01:43 Ephedrine Sulfate (Ephedrine Sulfate) Confirm Administered Dose 50 mg .ROUTE .STK-MED ONE Stop: 03/31/19 01:42 Ampicillin Sodium 2 gm/ Sodium (Chloride) 100 mls @ 200 mls/hr IV ONETIME ONE Stop: 03/29/19 20:06 Last Admin: 03/29/19 20:09 Dose: 200 mls/hr Fentanyl/Bupivacaine HCl (Tmtxjizh-Bpzui-Vy 2 Mcg/Ml-0.125%) Confirm Administered Dose 100 mls @ as directed .ROUTE .STK-MED ONE Stop: 03/31/19 01:42 Lidocaine/Epinephrine (Lidocaine 1.5%-Epi 1:200,000) Confirm Administered Dose 5 ml IJ .STK-MED ONE Stop: 03/31/19 01:42 Misoprostol (Cytotec) 50 mcg PO ONETIME ONE Stop: 03/30/19 19:57 Last Admin: 03/30/19 20:46 Dose: 50 mcg
--- NOTE | 2019-03-31 06:01 | PCM.DEL ---
L & D Note - General Info Date of Service: 03/31/19 Mother's Due Date: 04/09/19 - Delivery Note Labor: Spontaneous, Augmented by Oxytocin Cervical Ripening Method: Misoprostil Delivery Outcome: Livebirth Delivery Method: Spontaneous Vaginal Delivery-Single Infant Delivery Mode: Spontaneous Presentation: Vertex Nuchal Cord: None Anesthesia Type: Epidural Amniotic Fluid Description: Meconium Stained Episiotomy Type: None Laceration: 1st Degree, Perineal Suture type: Vicryl Suture size: 3-0 Placenta: Intact, Spontaneous Cord: 3 Vessels Estimated Blood Loss: 200 Resuscitation Needed: No [place]: Stimulated Score 1 min: 9 Score 5 min: 9 Second Stage Interventions: Reports: Pushing, Pulls Own Legs Back Delivery Comments (Free Text/Narrative):: viable girl APGARS 9/9, Wt: 7lb 7oz. 1st degree lac with repair, EBL 200cc. Mom and baby stable in recovery Induction Criteria - Augmentation Estimated Pelvis: Reports: Adequate Weight Estimated:: Reports: AGA Reassuring Monitoring Strip: Yes Absence of Tachy Systole: Yes - General Info Date of Service: 03/31/19 Admission Dx/Problem (Free Text): Patient Status Order with Admit Dx/Problem 03/29/19 18:11 Patient Status [ADT] Routine Admission Diagnosis/Problem Admission Diagnosis/Problem -related examination Functional Status: Reports: Pain Controlled - Review of Systems General: Reports: No Symptoms HEENT: Reports: No Symptoms Pulmonary: Reports: No Symptoms Cardiovascular: Reports: No Symptoms Gastrointestinal: Reports: No Symptoms Genitourinary: Reports: No Symptoms Musculoskeletal: Reports: No Symptoms Skin: Reports: No Symptoms Neurological: Reports: No Symptoms Psychiatric: Reports: No Symptoms - Patient Data Weight - Most Recent: 55.338 kg Med Orders - Current: Current Medications Butorphanol Tartrate (Stadol) 1 mg IVPUSH Q1H PRN PRN Reason: Pain Last Admin: 03/30/19 20:27 Dose: 1 mg Carboprost Tromethamine (Hemabate Ds) 250 mcg IM ASDIRECTED PRN PRN Reason: Post Hemorrhage Tranexamic Acid 1,000 mg/ (Sodium Chloride) 110 mls @ 660 mls/hr IV ONETIME PRN PRN Reason: Bleeding Lactated Ringer's (Ringers, Lactated) 1,000 mls @ 150 mls/hr IV ASDIRECTED AKOSUA Last Admin: 03/31/19 02:22 Dose: 150 mls/hr Oxytocin/Sodium Chloride (Oxytocin 30 Unit/500 Ml-Ns) 30 unit in 500 mls @ 999 mls/hr IV TITRATE AKOSUA Ampicillin Sodium 1 gm/ Sodium (Chloride) 50 mls @ 100 mls/hr IV Q4H [facility] Last Admin: 03/31/19 04:05 Dose: 100 mls/hr Oxytocin/Sodium Chloride (Oxytocin 30 Unit/500 Ml-Ns) 30 unit in 500 mls @ 2 mls/hr IV TITRATE AKOSUA; Protocol Last Infusion: 03/31/19 03:41 Dose: 4 munits/min, 4 mls/hr Lidocaine HCl (Xylocaine 1%) 50 ml INJECT ONETIME PRN PRN Reason: Laceration repair Methylergonovine Maleate (Methergine) 0.2 mg IM ASDIRECTED PRN PRN Reason: Post Hemorrhage Misoprostol (Cytotec) 200 mcg PO ONETIME PRN PRN Reason: Post Hemorrhage Misoprostol (Cytotec) 25 mcg PO Q4H [facility] Last Admin: 03/30/19 19:57 Dose: Not Given Nalbuphine HCl (Nubain) 10 mg IVPUSH Q1H PRN PRN Reason: Pain (severe 7-10) Ondansetron HCl (Zofran) 4 mg IV Q6H PRN PRN Reason: Nausea/Vomiting Sodium Chloride (Saline Flush) 10 ml FLUSH ASDIRECTED PRN PRN Reason: Keep Vein Open Sodium Chloride (Saline Flush) 2.5 ml FLUSH ASDIRECTED PRN PRN Reason: Keep Vein Open Sodium Chloride (Normal Saline) 10 ml IV ASDIRECTED PRN PRN Reason: IV Use Sterile Water (Sterile Water For Irrigation) 1,000 ml IRR ASDIRECTED PRN PRN Reason: delivery Discontinued Medications Bupivacaine HCl (Sensorcaine-Mpf 0.25%) Confirm Administered Dose 10 ml .ROUTE .Identified ONE Stop: 03/31/19 01:43 Last Admin: 03/31/19 03:18 Dose: Not Given Ephedrine Sulfate (Ephedrine Sulfate) Confirm Administered Dose 50 mg .ROUTE .[employer] ONE Stop: 03/31/19 01:42 Last Admin: 03/31/19 03:17 Dose: Not Given Ampicillin Sodium 2 gm/ Sodium (Chloride) 100 mls @ 200 mls/hr IV ONETIME ONE Stop: 03/29/19 20:06 Last Admin: 03/29/19 20:09 Dose: 200 mls/hr Fentanyl/Bupivacaine HCl (Rpndefsh-Frqkm-Af 2 Mcg/Ml-0.125%) Confirm Administered Dose 100 mls @ as directed .ROUTE .STK-MED ONE Stop: 03/31/19 01:42 Last Admin: 03/31/19 03:17 Dose: Not Given Lidocaine/Epinephrine (Lidocaine 1.5%-Epi 1:200,000) Confirm Administered Dose 5 ml IJ .STK-MED ONE Stop: 03/31/19 01:42 Last Admin: 03/31/19 03:18 Dose: Not Given Misoprostol (Cytotec) 50 mcg PO ONETIME ONE Stop: 03/30/19 19:57 Last Admin: 03/30/19 20:46 Dose: 50 mcg - Exam General: Alert, Oriented, Cooperative, No Acute Distress Lungs: Normal Respiratory Effort GI/Abdominal Exam: Soft, Non-Tender (Female) Exam: Normal External Exam, Normal Bimanual Exam, Vaginal Bleeding, Vaginal Lesions Back Exam: Normal Inspection Extremities: Non-Tender, No Pedal Edema Skin: Warm, Dry, Intact Wound/Incisions: Healing Well Neurological: No New Focal Deficit, Normal Speech, Normal Tone Psy/Mental Status: Alert, Normal Affect, Normal Mood - Problem List & Annotations (1) Supervision of normal IUP (intrauterine ) in multigravida SNOMED Code(s): 900614336, 517203705, 677989611 Code(s): Z34.80 - ENCOUNTER FOR SUPRVSN OF NORMAL , UNSP TRIMESTER Status: Acute Priority: High Current Visit: Yes Qualifiers: Trimester: third trimester Qualified Code(s): Z34.83 - Encounter for supervision of other normal , third trimester (2) Prolonged rupture of membranes, greater than 24 hours, delivered SNOMED Code(s): 51886306, 217344148 Code(s): O42.10 - DEBI ROM, ONSET LABOR > 24 HR FOL RUPT, UNSP WEEKS OF GEST Status: Acute Priority: High Current Visit: Yes (3) (normal spontaneous vaginal delivery) SNOMED Code(s): 07638655, 779368167 Code(s): O80 - ENCOUNTER FOR FULL-TERM UNCOMPLICATED DELIVERY Status: Acute Priority: Medium Current Visit: No - Problem List Review Problem List Initiated/Reviewed/Updated: Yes - My Orders Last 24 Hours: My Active Orders 03/30/19 10:45 miSOPROStol [Cytotec] 25 mcg PO Q4H 03/30/19 Breakfast Regular Diet [DIET] - Plan Plan:: IUP 38wks+3 with SROM confirmed. GBS status is unknown. Plan to start antbiotic as per protocol and pitocin stimulation ad needed. Delivered A: of viable female, APGARS 9/9, Wt: 7lb 7oz, 1st deg lac with repair. EBL 200cc. Mother and baby stable P: Routine pp plan of care
[2019-03-31] MEDS ORDERED: Docusate Sodium 100 MG Cap PO PRN (06:03)
[2019-03-31] MEDS ORDERED: Ibuprofen 400 MG Tab PO PRN (06:03)
[2019-03-31] MEDS ORDERED: Bisacodyl 10 MG Supp RECTAL PRN (06:03)
[2019-03-31] MEDS ORDERED: Benzocaine/Menthol 20%-0.5% Spray 78 GM Cannister TOP PRN (06:03)
[2019-03-31] MEDS ORDERED: Witch Hazel Medicated Pads 40/Jar TOP PRN (06:03)
[2019-03-31] MEDS ORDERED: oxyCODONE 5 MG Tab PO PRN (06:03)
[2019-03-31] MEDS ORDERED: Acetaminophen 500 MG Tab PO PRN ×2 (06:03)
[2019-03-31] MEDS ORDERED: Lanolin 100% Cream 7 GM Tube TOP PRN (06:03)
[2019-03-31] MEDS ORDERED: Oxytocin/0.9 % Sodium Chloride 30 UNIT/500 ML BAG ONE (06:06)
[2019-03-31] MEDS: Misoprostol 25 MCG (1/4 of 100 MCG) Tab PO SCH (06:54)
--- NOTE | 2019-03-31 07:35 | PCM48HPAN ---
Post Anesthesia Note - EVALUATION WITHIN 48HRS OF ANESTHETIC Vital Signs in Normal Range: Yes Patient Participated in Evaluation: Yes Respiratory Function Stable: Yes Airway Patent: Yes Cardiovascular Function Stable: Yes Hydration Status Stable: Yes Pain Control Satisfactory: Yes Nausea and Vomiting Control Satisfactory: Yes Mental Status Recovered: Yes - COMMENTS/OBSERVATIONS Free Text/Narrative:: pt comfortable without paresthesias or pain
[2019-03-31] MEDS: Ibuprofen 800 MG Tab PO PRN ×2 (12:15→18:07)
[2019-04-01 07:41] VITALS: BP 118/79
--- NOTE | 2019-04-01 08:48 | PCM.PNPP ---
- General Info Date of Service: 04/01/19 Functional Status: Reports: Pain Controlled - Review of Systems General: Reports: No Symptoms HEENT: Reports: No Symptoms Pulmonary: Reports: No Symptoms Cardiovascular: Reports: No Symptoms Gastrointestinal: Reports: No Symptoms Genitourinary: Reports: No Symptoms Musculoskeletal: Reports: No Symptoms Skin: Reports: No Symptoms Neurological: Reports: No Symptoms Psychiatric: Reports: No Symptoms - General Info Date of Service: 04/01/19 - Patient Data Vital Signs - Most Recent: Last Vital Signs Temp 36.6 C 04/01/19 07:40 Pulse 70 04/01/19 07:40 Resp 16 04/01/19 07:40 BP 118/79 04/01/19 07:40 Pulse Ox 97 04/01/19 07:40 Weight - Most Recent: 55.338 kg Med Orders - Current: Current Medications Acetaminophen (Tylenol Extra Strength) 500 mg PO Q4H PRN PRN Reason: Pain Acetaminophen (Tylenol Extra Strength) 1,000 mg PO Q4H PRN PRN Reason: Pain Last Admin: 04/01/19 07:27 Dose: 1,000 mg Benzocaine/Menthol (Dermoplast Pain Relief 20%-0.5% [place]) 78 gm TOP ASDIRECTED PRN PRN Reason: Perineal Comfort Measure Bisacodyl (Dulcolax) 10 mg RECTAL ONETIME PRN PRN Reason: Constipation Docusate Sodium (Colace) 100 mg PO BID PRN PRN Reason: Constipation Emollient Ointment (Lansinoh Hpa) 0 gm TOP ASDIRECTED PRN PRN Reason: Sore Nipples Ibuprofen (Motrin) 400 mg PO Q4H PRN PRN Reason: Pain Ibuprofen (Motrin) 800 mg PO Q6H PRN PRN Reason: Pain Last Admin: 03/31/19 18:07 Dose: 800 mg Oxycodone HCl (Oxycodone) 5 mg PO Q2H PRN PRN Reason: Pain Witch Niki (Tucks) 1 pad TOP ASDIRECTED PRN PRN Reason: comfort care Discontinued Medications Bupivacaine HCl (Sensorcaine-Mpf 0.25%) Confirm Administered Dose 10 ml .ROUTE .STK-MED ONE Stop: 03/31/19 01:43 Last Admin: 03/31/19 03:18 Dose: Not Given Butorphanol Tartrate (Stadol) 1 mg IVPUSH Q1H PRN PRN Reason: Pain Last Admin: 03/30/19 20:27 Dose: 1 mg Carboprost Tromethamine (Hemabate Ds) 250 mcg IM ASDIRECTED PRN PRN Reason: Post Hemorrhage Ephedrine Sulfate (Ephedrine Sulfate) Confirm Administered Dose 50 mg .ROUTE .Thumb-MED ONE Stop: 03/31/19 01:42 Last Admin: 03/31/19 03:17 Dose: Not Given Tranexamic Acid 1,000 mg/ (Sodium Chloride) 110 mls @ 660 mls/hr IV ONETIME PRN PRN Reason: Bleeding Ampicillin Sodium 2 gm/ Sodium (Chloride) 100 mls @ 200 mls/hr IV ONETIME ONE Stop: 03/29/19 20:06 Last Admin: 03/29/19 20:09 Dose: 200 mls/hr Lactated Ringer's (Ringers, Lactated) 1,000 mls @ 150 mls/hr IV ASDIRECTED AKOSUA Last Admin: 03/31/19 02:22 Dose: 150 mls/hr Oxytocin/Sodium Chloride (Oxytocin 30 Unit/500 Ml-Ns) 30 unit in 500 mls @ 999 mls/hr IV TITRATE [facility] Last Admin: 03/31/19 06:08 Dose: 999 mls/hr Ampicillin Sodium 1 gm/ Sodium (Chloride) 50 mls @ 100 mls/hr IV Q4H AKOSUA Last Admin: 03/31/19 04:05 Dose: 100 mls/hr Oxytocin/Sodium Chloride (Oxytocin 30 Unit/500 Ml-Ns) 30 unit in 500 mls @ 2 mls/hr IV TITRATE [facility]; Protocol Last Infusion: 03/31/19 05:37 Dose: 999 mls/hr Fentanyl/Bupivacaine HCl (Qqaqsnao-Oaliu-Jx 2 Mcg/Ml-0.125%) Confirm Administered Dose 100 mls @ as directed .ROUTE .Thumb-MED ONE Stop: 03/31/19 01:42 Last Admin: 03/31/19 03:17 Dose: Not Given Oxytocin/Sodium Chloride (Oxytocin 30 Unit/500 Ml-Ns) Confirm Administered Dose 30 unit in 500 mls @ as directed .ROUTE .[place]-MED ONE Stop: 03/31/19 06:07 Last Admin: 03/31/19 06:42 Dose: Not Given Lidocaine HCl (Xylocaine 1%) 50 ml INJECT ONETIME PRN PRN Reason: Laceration repair Lidocaine/Epinephrine (Lidocaine 1.5%-Epi 1:200,000) Confirm Administered Dose 5 ml IJ .STK-MED ONE Stop: 03/31/19 01:42 Last Admin: 03/31/19 03:18 Dose: Not Given Methylergonovine Maleate (Methergine) 0.2 mg IM ASDIRECTED PRN PRN Reason: Post Hemorrhage Misoprostol (Cytotec) 200 mcg PO ONETIME PRN PRN Reason: Post Hemorrhage Misoprostol (Cytotec) 25 mcg PO Q4H AKOSUA Last Admin: 03/31/19 06:54 Dose: Not Given Misoprostol (Cytotec) 50 mcg PO ONETIME ONE Stop: 03/30/19 19:57 Last Admin: 03/30/19 20:46 Dose: 50 mcg Nalbuphine HCl (Nubain) 10 mg IVPUSH Q1H PRN PRN Reason: Pain (severe 7-10) Ondansetron HCl (Zofran) 4 mg IV Q6H PRN PRN Reason: Nausea/Vomiting Sodium Chloride (Saline Flush) 10 ml FLUSH ASDIRECTED PRN PRN Reason: Keep Vein Open Sodium Chloride (Saline Flush) 2.5 ml FLUSH ASDIRECTED PRN PRN Reason: Keep Vein Open Sodium Chloride (Normal Saline) 10 ml IV ASDIRECTED PRN PRN Reason: IV Use Sterile Water (Sterile Water For Irrigation) 1,000 ml IRR ASDIRECTED PRN PRN Reason: delivery - Interaction Disposition, : in Room with Family Interaction: Not Interacting Infant Feeding: Attempted ; Nursed Fair/Poor Support Person: - Recovery Exam Fundal Tone: Firm Fundal Level: 1 Fingerbreadths Below Umbilicus Fundal Placement: Midline Lochia Amount: Scant Lochia Color: Rubra/Red Perineum Description: Intact, Minimal Bruising/Swelling Other Perinuem Description: 1st degree laceration Episiotomy/Laceration: Approximated Bladder Status: Voiding - Exam General: Alert, Oriented HEENT: Pupils Equal Neck: Supple Lungs: Clear to Auscultation, Normal Respiratory Effort Cardiovascular: Regular Rate, Regular Rhythm GI/Abdominal Exam: Normal Bowel Sounds, Soft, Non-Tender, No Organomegaly, No Distention, No Abnormal Bruit, No Mass, Pelvis Stable Extremities: Normal Inspection, Normal Range of Motion, Non-Tender, No Pedal Edema, Normal Capillary Refill Skin: Warm, Dry, Intact Wound/Incisions: Healing Well Neurological: No New Focal Deficit Psy/Mental Status: Alert, Normal Affect, Normal Mood - Problem List Review Problem List Initiated/Reviewed/Updated: Yes - Assessment Assessment:: Status post normal spontaneous vaginal delivery doing well we are planning for her to be discharged today - Plan Plan:: IUP 38wks+3 with SROM confirmed. GBS status is unknown. Plan to start antbiotic as per protocol and pitocin stimulation ad needed. Delivered A: of viable female, APGARS 9/9, Wt: 7lb 7oz, 1st deg lac with repair. EBL 200cc. Mother and baby stable P: Routine pp plan of care
== END 2019-04-01 11:35 | disposition home or self-care (01) | DRG 560 ==
LOC: MW.OB 05:36 → OBSVTOIN 03-31 05:36 → MW.OB 03-31 09:15
PROVIDERS: ADMIT Obstetrics & Gynecology; ATTEND Obstetrics & Gynecology
PROC: 10E0XZZ Delivery of Products of Conception, External Approach (ICD-10-PCS; principal; 2019-03-31)
PROC: 0HQ9XZZ Repair Perineum Skin, External Approach (ICD-10-PCS; 2019-03-31)
DX: O42.12 Full-term premature rupture of membranes, onset of labor more than 24 hours following rupture (principal); O77.0 Labor and delivery complicated by meconium in amniotic fluid; O70.0 First degree perineal laceration during delivery; Z37.0 Single live birth; Z3A.38 38 weeks gestation of pregnancy
CPT/HCPCS: 36415; 51702; 59025; 59409; 84112; 85027; 86850; 86900; 86901; A9270-GY; J0290; J0595; J2590; J7030; J7050; J7120